=== PATIENT | female | born 1970 | race Caucasian/White ===

== ENCOUNTER 2020-05-16 15:54 | Outpatient (CLI) | payer BC, SELFPAY ==
--- NOTE | ~2020-05-16 | MM_ITS ---
EXAMINATION: MM screening doug BI w rodney HISTORY: Screening TECHNIQUE: Craniocaudal and mediolateral oblique 3-D tomosynthesis images were obtained and synthetic 2-D images were generated. CAD analysis was submitted and interpreted. COMPARISON: Comparison to multiple prior studies sequentially, with oldest reviewed study dated 01/08. BREAST PARENCHYMAL COMPOSITION: The breasts are heterogeneously dense, which may obscure small masses . FINDINGS: There is no evidence of suspicious mass, calcification, or architectural distortion to sugg est malignancy in either breast. There has been no suspicious interval change. IMPRESSION: 1. No mammographic evidence of malignancy. 2. Recommend routine screening mammography in one year. BI-RADS Category 1: Negative Reviewed, dictated and finalized at location A.
== END 2020-05-16 15:55 | disposition home or self-care (01) ==
LOC: ANHIMG 15:56
PROVIDERS: PCP Family Medicine; Visit Provider Obstetrics & Gynecology
DX: Z12.31 Encounter for screening mammogram for malignant neoplasm of breast (principal)
CPT/HCPCS: 77063; 77067

== ENCOUNTER 2021-07-01 09:46 | Outpatient (CLI) | payer BC, SELFPAY ==
[2021-07-01 10:21] LABS: Basophils Absolute Auto 0.1 K/mm3 (0.0-0.1); Basophils Percent Auto 0.9 % (0.2-1.2); Eosinophils Absolute Auto 0.4 K/mm3 (0-0.3); Eosinophils Percent Auto 6.1 % (0-4.4); Hemoglobin 12.6 g/dL (12.0-15.0); Immature Granulocyte Absolute 0.04 K/mm3 (0.00-0.031); Immature Granulocyte Percent A 0.6 % (0-0.5); Lymphocytes Absolute Auto 1.25 K/mm3 (0.9-3.2); Lymphocytes Percent Auto 19.2 % (18.3-44.2); Mean Corpuscular HGB Conc 31.5 g/dl (32-36); Mean Corpuscular Hemoglobin 24.9 pg (26-34); Mean Corpuscular Volume 78.9 fl (80-100); Mean Platelet Volume 11.3 fl (7.4-10.4); Monocytes Absolute Auto 0.6 K/mm3 (0.1-0.6); Monocytes Percent Auto 9.4 % (2.6-8.5); Neutrophils Absolute Auto 4.2 K/mm3 (1.3-6.7); Neutrophils Percent Auto 63.8 % (45.5-73.1); Platelet Count Result 256 k/mm3 (150-375); Red Blood Count 5.07 M/mm3 (4.2-5.4); Red Cell Distribution Width 15.9 % (11.5-14.5); White Blood Count 6.5 K/mm3 (4.5-10.0)
== END 2021-07-01 09:47 | disposition home or self-care (01) ==
LOC: ANHSURGERY 09:51
PROVIDERS: Visit Provider Obstetrics & Gynecology
DX: D21.9 Benign neoplasm of connective and other soft tissue, unspecified (principal); Z01.818 Encounter for other preprocedural examination
CPT/HCPCS: 36415; 85025; 86850; 86900; 86901

== ENCOUNTER 2021-07-03 02:37 | Day surgery (SDC) | payer BC, SELFPAY ==
[2021-06-29 08:51] VITALS: BMI 27.4
--- NOTE | 2021-07-01 09:57 | PM.IMHP ---
H&P: HPI History of Present Illness Date/Time: 07/01/21 09:57 50-year-old para admitted for robotic total vaginal hysterectomy and bilateral salpingo-oophorectomy secondary to enlarged fibroid uterus. She has had pain discomfort dyspareunia. She has a large fibroid seen on ultrasound. Risks and benefits reviewed in full. She asked to proceed Chief Complaint: Symptomatic uterine fibroids Review of Systems Review of Systems: All systems reviewed & are unremarkable except as noted in HPI and below PMFSH Past Medical History Medical History Anxiety Insomnia Iron deficiency Mixed hyperlipidemia Moderate single current episode of major depressive disorder Obstructive sleep apnea syndrome Pre-diabetes Family History Family History Sibling Family history of obesity Patient's sister is in good health Mother Patient's mother is in good health Family history of chronic obstructive pulmonary disease Father Family history of lung cancer, Onset Age: 62 Social History Social History Smoking status: Never smoker Second hand tobacco smoke exposure: No Alcohol intake: current Spiritual care concerns: No Meds Home Medications and Allergies Home Medications Medication Instructions Recorded Confirmed Type ondansetron HCl 4 mg tablet 4 mg PO Q8H PRN #14 tablet 07/21/20 06/29/21 Rx sumatriptan succinate 50 mg tablet See Rx Instructions PO .COMPLEX 02/16/21 06/29/21 Rx #10 tablet duloxetine 40 mg capsule,delayed 40 mg PO DAILY #30 cap 04/02/21 06/29/21 Rx release zolpidem 12.5 mg tablet,extended 12.5 mg PO .at night #30 tablet 05/11/21 06/29/21 Rx release,multiphase latanoprost 1 drp EACH EYE HS 06/29/21 06/29/21 History meloxicam 15 mg PO DAILY PRN 06/29/21 06/29/21 History omeprazole 20 mg PO QAM 06/29/21 06/29/21 History Allergies Allergy/AdvReac Type Severity Reaction Status Date / Time vancomycin Allergy Mild Hives Verified 06/29/21 08:48 Exam Const: General: no acute distress Eyes: General: appearance normal, both eyes and all related structures Neck: Neck: supple and no JVD Thyroid: thyroid normal Resp: Effort & Inspection: normal respiratory effort Auscultation: clear to auscultation bilaterally Cardio: Rate: regular rate Rhythm: regular rhythm GI: Inspection: non-distended GI Palp: Yes Soft to palpation, No Tenderness to palpation present (GI) and No Guarding due to palpation present (GI) Auscultation: normal bowel sounds : External Female Exam: normal external appearance Speculum Exam - Vagina: normal appearance of the vagina Speculum Exam - Cervix: normal appearance of the cervix Bimanual exam- vagina & uterus: enlarged Bimanual Exam- Adnexa, other: normal adnexae Skin: General skin exam: no rashes or lesions noted Extrem: General: normal to inspection and no edema Psych: Mental Status: mental status grossly normal Affect: normal affect Assessment and Plan Additional Plan Impression: Symptomatic uterine fibroid Plan: Robotic total vaginal hysterectomy and bilateral salpingo-oophorectomy
--- NOTE | 2021-07-02 11:57 | P.PNAN_ITS ---
Anes - Initial Pre Proc Eval Procedure: Operation Date: 07/03/21 07:30 Proposed Procedures p Robotic Assisted Total Vaginal Hysterectomy with Bilateral Salpingo- Oophorectomy - Torey Garcia MD Date/Time: 07/02/21 11:57 Surgeon: Torey Garcia MD Pre Op Diagnosis: enlarged uterus fibroid Patient Data Age: 50 Gender: F Height: 1.73 m Weight: 81.8 kg Allergies Allergy/AdvReac Type Severity Reaction Status Date / Time vancomycin Allergy Mild Hives Verified 06/29/21 08:48 Home Medications Medication Instructions Recorded Confirmed Type ondansetron HCl 4 mg tablet 4 mg PO Q8H PRN #14 tablet 07/21/20 07/03/21 Rx sumatriptan succinate 50 mg tablet See Rx Instructions PO .COMPLEX 02/16/21 07/03/21 Rx #10 tablet duloxetine 40 mg capsule,delayed 40 mg PO DAILY #30 cap 04/02/21 07/03/21 Rx release zolpidem 12.5 mg tablet,extended 12.5 mg PO .at night #30 tablet 05/11/21 07/03/21 Rx release,multiphase latanoprost 1 drp EACH EYE HS 06/29/21 07/03/21 History meloxicam 15 mg PO DAILY PRN 06/29/21 07/03/21 History omeprazole 20 mg PO QAM 06/29/21 07/03/21 History hydrocodone-acetaminophen 1 tablet PO Q4H PRN #30 tablet 07/03/21 Rx Patient hx anesthesia problems: none Family hx anesthesia problems: none PMFSH Past Medical History Medical History (Updated 07/03/21 @ 06:58 by Torey Garcia MD) Anxiety Insomnia Iron deficiency Mixed hyperlipidemia Moderate single current episode of major depressive disorder Obstructive sleep apnea syndrome Pre-diabetes Family History Family History Sibling Family history of obesity Patient's sister is in good health Mother Patient's mother is in good health Family history of chronic obstructive pulmonary disease Father Family history of lung cancer, Onset Age: 62 Social History Social History Smoking status: Never smoker Second hand tobacco smoke exposure: No Alcohol intake: current Living arrangements: alone Spiritual care concerns: No Anes - Eval Final PreProcedure Day of Procedure 07/02/21 11:57 Patient weight: overweight Heart: regular rate and rhythm Lungs: clear to auscultation and normal air movement Airway: Mallampati scale class II Neurological: alert and oriented Last oral intake: >/= 8 hours ASA classification: II Emergent: no Anesthetic plan: proceed Anesthesia type and monitoring: general ETT Informed Consent: The patient's anesthetic plan and its attendant risks and benefits were discussed with the patient/family/POA. Questions were solicited and answers provided to the satisfaction of the patient/family/POA.
[2021-07-03] VITALS (11 sets, daily range): BP systolic 118–145; BP diastolic 80–97; PULSE 92–107; RESP 9–20; TEMP 36.8–37.3; O2SAT 94–99
[2021-07-03] MEDS: ACETAMINOPHEN 500 MG TABLET 1000 MG PO (06:39)
[2021-07-03] MEDS: LACTATED RINGERS 1,000 ML 30 ML IV CONT ×2 (06:45→09:00)
[2021-07-03] MEDS: KETOROLAC 15 MG/ML VIAL (*BKC) IV PUSH (06:46)
--- NOTE | 2021-07-03 06:57 | WPDHPUPDATE1 ---
History and Physical Update Update Date/Time: 07/03/21 06:57 History and Physical has been reviewed, including an updated exam of the patient. There are NO changes in the patient's condition. Risks, benefits, and alternatives have been discussed and questions answered. Patient agrees to proceed with procedure.
[2021-07-03] MEDS: ceFAZolin 2 GM/D5W 50 ML 2 GM/50 ML BAG IVPB (07:25)
--- NOTE | 2021-07-03 08:50 | W.PM.PROC2 ---
Procedure Note - Detailed Date of Procedure 07/03/21 Pre-op Diagnosis enlarged uterus fibroid Post-op Diagnosis same Procedure Performed Robotic total vaginal hysterectomy and bilateral salpingo-oophorectomy Surgeon Torey Garcia MD Anesthesia general Indications this is a 50-year-old female with enlarged uterus pelvic pain Findings enlarged uterus. Normal-appearing ovaries and tubes Description of Procedure the patient was prepped draped in the normal sterile fashion placed in the dorsal lithotomy position. Under excellent general endotracheal anesthesia weighted speculum placed posterior fornix vagina. Anterior lip of the cervix grasped with a single-tooth tenaculum and the uterus sounded to 10cm. Serial dilatation with fragmented dilators performed followed by passage of the 8. EMILIE and the 3. 0.5 cold. Sixteen Syri[place] catheter was then placed in the bladder and the remainder the instruments removed from the vagina. The gloves were changed A supraumbilical incision made in the [place] needle passed in the abdomen. The abdomen filled with CO2 gas [id number]. The 8mm trocar advanced in the abdomen. The downside visualized no injury seen patient. The patient placed in Trendelenburg and right left lateral quadrant incisions made. The 8mm trocars advanced in the abdomen under direct visualization assuring no injuries. A right upper quadrant incision made the 8mm trocar advanced under direct visualization. No injury was seen. The robot was docked. Attention was turned to the personal counselor. The left round ligament was grasped, burned, cut. Anteriorly a bladder flap was formed by sharply dissecting the peritoneum and gently reflecting the bladder caudally from the uterus and cervix. There appeared to be a fair amount of scar tissue and this was done 1 layer at a time. This is taken to the opposite round ligament which was clamped, burned, cut. Next the the infundibulopelvic structure on the left was skeletonized to remove the left ovary and tube. This was clamped, burned, cut and brought to the level of previously cut round ligament. In like fashion removing the right ovary and tube the infundibulopelvic structure was skeletonized. This was serially clamped, burned, cut and brought to the level of previously cut round ligament. Next the cardinal and broad ligaments on the left were serially skeletonized and brought down laterally along the edge of the cervix and uterus clamping burning and cutting until the large tortuous blood vessels could be seen. These were individually clamped, burned, cut. In like fashion the cardinal broad ligaments on the right were serially skeletonized. These were clamped, burned, cut and brought down lateral edge of the uterus until the uterine vessels could be seen on the right. These were as well tortuous and large and individually clamped burned and cut. Good blanching of the uterus was noted and a colpotomy incision was made. The cervix uterus ovaries and tubes removed through the vagina. The vagina was then closed with continuous running 0V lock from lateral edge to lateral edge back to the midline. Blood loss estimated at25cc and irrigation undertaken at the pedicles. The vaginal cuff was then sprinkled with [place] term and hemostasis assured. The robot was undocked. The gas removed from the abdomen. The instruments removed from the abdomen and the incisions closed with 4 0 Monocryl glue. Blood loss was estimated 25cc. All sponge, needle, instrument counts were correct. There were no immediate complications Estimated Blood Loss 25 Drains No Packing No Pathology yes Complications No immediate complications Condition stable Disposition PACU
[2021-07-03] MEDS: fentaNYL CITRATE INJ (*CRX) 100 MCG/2 ML VIAL 25 MCG IV PUSH ×2 (09:16→09:39)
[2021-07-03] MEDS: DEXTROSE 5%/LACTATED RINGERS 1,000 ML 125 ML IV CONT (10:27)
[2021-07-03] MEDS: KETOROLAC 30 MG/ML VIAL (*BKC) IV PUSH (11:17)
--- NOTE | 2021-07-03 13:13 | ADMGEN ---
This patient, Nicole Valera, was admitted to OB 2nd Floor Room 289-00. Patient/family oriented to hospital policies and general routines including ID bracelet, bed and alarms, visiting hours, pain management, procedures, bathroom and other care routines, personal items, smoking policy, room service/diet, and visiting hours. Information on how to activate the Rapid Response Team has been discussed. Patient/Family are encouraged to report perceived risks to care and to ask questions if they do not understand what they are told or what they should do.
[2021-07-03] MEDS: DOCUSATE SODIUM 100 MG CAPSULE PO (16:42)
[2021-07-03] MEDS: HYDROcodone/acetaminophen (*CRX) 5-325 MG TABLET 1 TAB PO (16:42)
[2021-07-03] MEDS: ONDANSETRON INJ 4 MG/2 ML VIAL IV PUSH (17:49)
[2021-07-03] MEDS: SUMAtriptan SUCCINATE 25 MG TABLET 100 MG PO (20:23)
[2021-07-03] MEDS: ZOLPIDEM TARTRATE (*CRX) 5 MG TABLET 10 MG PO (20:27)
[2021-07-04] MEDS: HYDROcodone/acetaminophen (*CRX) 5-325 MG TABLET 1 TAB PO ×3 (00:56→10:09)
[2021-07-04 01:00] VITALS: BP 140/88; PULSE 100; RESP 16; TEMP 36.6; O2SAT 98
[2021-07-04] MEDS: IBUPROFEN 600 MG TABLET PO (05:47)
[2021-07-04 05:50] VITALS: BP 148/85; PULSE 90; RESP 16; TEMP 36.7; O2SAT 99
[2021-07-04 06:05] LABS: Basophils Percent Auto 0.3 % (0.2-1.2); Eosinophils Percent Auto 0.1 % (0-4.4); Hematocrit 37.1 % (37.0-47.0); Hemoglobin 11.6 g/dL (12.0-15.0); Immature Granulocyte Absolute 0.07 K/mm3 (0.00-0.031); Immature Granulocyte Percent A 0.5 % (0-0.5); Lymphocytes Absolute Auto 1.01 K/mm3 (0.9-3.2); Lymphocytes Percent Auto 7.6 % (18.3-44.2); Mean Corpuscular HGB Conc 31.3 g/dl (32-36); Mean Corpuscular Hemoglobin 25.1 pg (26-34); Mean Corpuscular Volume 80.3 fl (80-100); Mean Platelet Volume 11.3 fl (7.4-10.4); Monocytes Percent Auto 7.5 % (2.6-8.5); Neutrophils Absolute Auto 11.2 K/mm3 (1.3-6.7); Platelet Count Result 217 k/mm3 (150-375); Red Blood Count 4.62 M/mm3 (4.2-5.4); Red Cell Distribution Width 15.9 % (11.5-14.5); White Blood Count 13.4 K/mm3 (4.5-10.0)
--- NOTE | 2021-07-04 08:58 | P.PNAN_ITS ---
Anes - Prog Note Post-Op Date/Time: 07/04/21 08:58 Cardiovascular status: normal Respiratory status: normal Airway patency: baseline Mental status: baseline Post-Op hydration status: normal Vital Signs: Last Vital Signs Temp 98.0 F 07/04/21 05:50 Pulse 90 07/04/21 05:50 Resp 16 07/04/21 05:50 BP 148/85 H 07/04/21 05:50 Pulse Ox 99 07/04/21 05:50 Pain Score (VAS): 0 I/O: Intake & Output 07/03/21 07/04/21 07/04/21 23:59 07:59 15:59 Intake Total 2204 1000 Output Total 1450 1500 Balance 754 -500 Laboratory Tests 07/04/21 05:40 07/04/21 05:40 WBC 13.4 H RBC 4.62 Hgb 11.6 L Hct 37.1 MCV 80.3 MCH 25.1 L MCHC 31.3 L RDW 15.9 H Plt Count 217 MPV 11.3 H Immature Gran % (Auto) 0.5 Neut % (Auto) 84.0 H Lymph % (Auto) 7.6 L [place] % (Auto) 7.5 Eos % (Auto) 0.1 Baso % (Auto) 0.3 Lymph # (Auto) 1.01 [place] # (Auto) 1.0 H Eos # (Auto) 0.0 Baso # (Auto) 0.0 Abs Immat Gran (auto) 0.07 H Absolute Neuts (auto) 11.2 H Absolute Nucleated RBC 0.0 Nucleated RBC % 0.0 Post-procedural complaints: nausea (scopalomine patch no longer on (pt unaware when or how it fell off). pt reports IV zofran providing adequate coverage) Patient Feedback: Patient satisfied with anesthetic care.
[2021-07-04 09:15] VITALS: BP 137/93; PULSE 82; RESP 16; TEMP 36.8; O2SAT 97
[2021-07-04] MEDS: DOCUSATE SODIUM 100 MG CAPSULE PO (09:26)
[2021-07-04] MEDS: ENOXAPARIN 40 MG/0.4 ML SYRINGE SUB-Q (09:26)
--- NOTE | 2021-07-04 10:15 | PM.GYNPNOP ---
CORRECTIONAL COUNSELOR/CASE MANAGER - A/P Postoperative Procedures: Procedures Operation Date: 07/03/21 07:30 Actual Procedure Side Surgeon p Robotic Assisted Total Vaginal Hysterectomy with Bilateral Salpingo-Oophorectomy Bilateral Torey Garcia MD A: POD#1, doing well. P: Home to f/u 2 weeks. Time Spent With Patient Time with patient: less than 15 minutes CORRECTIONAL COUNSELOR/CASE MANAGER- PN:Subj Post-Op Subjective Date/time seen: 07/04/21 10:15 Interval history: Pain OK. Tolerating diet. Voiding. Would like some Zofran for PRN use at home. Would like to go home. Exam Narrative: AVSS I/O OK ABD soft, nontender. Incisions c/d/i. EXT nontender CORRECTIONAL COUNSELOR/CASE MANAGER - PN: Obj Data Vital Signs Vital Signs: Vital Signs - 24 hr 07/03/21 11:47 07/03/21 14:15 07/03/21 19:25 Temperature 37.1 C 37.1 C Pulse Rate 92 92 107 H Respiratory Rate 16 16 16 Blood Pressure 134/85 123/87 Pulse Oximetry 95 95 97 07/04/21 01:00 07/04/21 05:50 07/04/21 09:15 Temperature 36.6 C 36.7 C 36.8 C Pulse Rate 100 90 82 Respiratory Rate 16 16 16 Blood Pressure 140/88 148/85 H 137/93 H Pulse Oximetry 98 99 97 Intake/Output Intake/Output: Intake & Output 07/01/21 07/02/21 07/03/21 07/04/21 23:59 23:59 23:59 23:59 Intake Total 2554 1000 Output Total 1450 1600 Balance 1104 -600 Meds/Results Medications: Active Medications Generic Name Dose Route Start Last Admin Trade Name Freq PRN Reason Stop Dose Admin Hydrocodone Bitart/Acetaminophen 1 tab 07/03/21 10:03 07/04/21 10:09 Hydrocodone/Acetaminophen (*Crx) 5-325 Mg Tablet PO 1 tab Q3H PRN Administration Pain Rated 5 or Less Hydrocodone Bitart/Acetaminophen 1 tab 07/03/21 10:03 Hydrocodone/Acetaminophen (*Crx) 10-325 Mg Tablet PO Q3H PRN Pain Rated 6 or Greater Docusate Sodium 100 mg 07/03/21 10:03 07/04/21 09:26 Docusate Sodium 100 Mg Capsule PO 100 mg BID PEARL Administration Enoxaparin Sodium 40 mg 07/03/21 10:03 07/04/21 09:26 Enoxaparin 40 Mg/0.4 Ml Syringe SUB-Q 40 mg DAILY PEARL Administration Ibuprofen 600 mg 07/03/21 10:03 07/04/21 05:47 Ibuprofen 600 Mg Tablet PO 600 mg Q6H PRN Administration Cramping Ketorolac Tromethamine 30 mg 07/03/21 10:03 07/03/21 11:17 Ketorolac 30 Mg/Ml Vial (*Bkc) IV PUSH 07/08/21 10:02 30 mg Q6H PRN Administration Pain Rated 4-6 Naloxone HCl 0.1 mg 07/03/21 10:03 Naloxone Hcl 0.4 Mg/Ml Vial IV PUSH Q2M PRN Respiratory rate less than 10 Ondansetron HCl 4 mg 07/03/21 10:03 07/03/21 17:49 Ondansetron Inj 4 Mg/2 Ml Vial IV PUSH 4 mg Q6H PRN Administration Nausea And Vomiting Simethicone 80 mg 07/03/21 10:03 Simethicone 80 Mg Tab.Chew PO Q2H PRN Gas Zolpidem Tartrate 10 mg 07/03/21 18:58 07/03/21 20:27 Zolpidem Tartrate (*Crx) 5 Mg Tablet PO 10 mg HS PRN Administration Insomnia Labs CBC & Chem 7: 07/04/21 05:40 Labs: Laboratory Results - last 24 hr 07/04/21 05:40 WBC 13.4 H RBC 4.62 Hgb 11.6 L Hct 37.1 MCV 80.3 MCH 25.1 L MCHC 31.3 L RDW 15.9 H Plt Count 217 MPV 11.3 H Immature Gran % (Auto) 0.5 Neut % (Auto) 84.0 H Lymph % (Auto) 7.6 L [place] % (Auto) 7.5 Eos % (Auto) 0.1 Baso % (Auto) 0.3 Lymph # (Auto) 1.01 [place] # (Auto) 1.0 H Eos # (Auto) 0.0 Baso # (Auto) 0.0 Abs Immat Gran (auto) 0.07 H Absolute Neuts (auto) 11.2 H Absolute Nucleated RBC 0.0 Nucleated RBC % 0.0
== END 2021-07-04 11:00 | disposition home or self-care (01) ==
LOC: ANHSURGERY 06:58 → ANHOB2 10:07
PROVIDERS: Visit Provider Obstetrics & Gynecology
PROC: (CPT 58552; principal; 2021-07-03 07:30)
DX: D25.1 Intramural leiomyoma of uterus (principal); N80.0 Endometriosis of uterus; N83.02 Follicular cyst of left ovary; N83.01 Follicular cyst of right ovary; N73.6 Female pelvic peritoneal adhesions (postinfective); R10.2 Pelvic and perineal pain; N94.10 Unspecified dyspareunia; E78.2 Mixed hyperlipidemia; G47.33 Obstructive sleep apnea (adult) (pediatric); R73.03 Prediabetes; F41.9 Anxiety disorder, unspecified
CPT/HCPCS: 58552; S2900; 36415; 85025; 88307; 99199; A9270; J0690; J1100; J1170; J1630; J1650; J1885; J2250; J2405; J2704; J2710; J3010; J7030; J7120; J7121